=== PATIENT | female | born 1995 | race Caucasian/White ===

== ENCOUNTER 2016-05-11 20:18 | Emergency (ER) | payer MEDICAID ==
[2016-05-11 20:29] VITALS: BP 118/83; BMI 21.5
[2016-05-11 21:14] LABS: BILIRUBIN,URINE NEGATIVE (NEGATIVE); BLOOD/HEMOGLOBIN,URINE NEGATIVE (NEGATIVE); GLUCOSE, URINE NEGATIVE (NEGATIVE); KETONES,URINE 3+ (NEGATIVE); LEUKOCYTE ESTERASE ,URINE 3+ (NEGATIVE); NITRITES,URINE NEGATIVE (NEGATIVE); PH,URINE 6.5 (5.0 - 8.0); PROTEIN,URINE 1+ (NEGATIVE); UROBILINOGEN,URINE NORMAL (NORMAL)
[2016-05-11 21:21] LABS: APPEARANCE,URINE HAZY (CLEAR); COLOR,URINE YELLOW (YELLOW)
[2016-05-11 21:27] LABS: RBC,URINE RARE /HPF (NEGATIVE); SQUAMOUS EPITHELIAL CELL,UR MANY /HPF (NEGATIVE)
[2016-05-11 21:28] LABS: AMORPHOUS SEDIMENT,UR 2+ /HPF (NEGATIVE); BACTERIA,URINE 2+ /HPF (NEGATIVE); MUCUS,URINE MODERATE /HPF (NEGATIVE)
== END 2016-05-11 21:44 | disposition home or self-care (01) ==
LOC: ER 20:18
DX: R11.2 Nausea with vomiting, unspecified (principal); Z3A.38 38 weeks gestation of pregnancy
CPT/HCPCS: 81001; 87086; 99284

== ENCOUNTER 2016-07-31 11:34 | Emergency (ER) | payer OTHER ==
[2016-07-31 11:52] VITALS: BP 99/71; BMI 18.3
[2016-07-31] MEDS ORDERED: NS 1000 ML 1,000 ML IV ONE (12:28)
[2016-07-31] MEDS ORDERED: ZOFRAN INJ 4 MG VIAL IVP ONE (12:29)
--- NOTE | 2016-07-31 12:29 | DR.GENAD ---
HPI - PCP Primary Care Physician: NFD - Complaint/Symptoms Chief Complaint:: PATIENT STATED SHE HAS BEEN VOMITING, HAVING BODY ACHES AND CHILLS FOR 3 DAYS - Nurses notes reviewed Nurses Notes Review: Yes - Source History Provided: Patient - Mode of Arrival Mode of Arrival: Ambulatory - Timing Onset of Chief Complaint: 07/29/16 PMH - PMH Past Medical History: Yes Past Medical History: Anxiety, Depression, Hypertension Past Surgical History: Yes Surgical History: Tonsillectomy - Family History History of Family Medical Conditions: Yes Family Medical History: Hypertension - Social History Does patient currently use any type of tobacco product: Yes Have you used tobacco products in the last 12 months: Yes Type of Tobacco Use: Cigarettes How many years tobacco product used: 4 Does any household member use tobacco: Yes Alcohol Use: None Do you use any recreational Drugs:: No Lives With: Family Lives Where: Home - infectious screening In the last 2 months have you had wt loss of >10#?: NO Have you had fever, night sweats or hemotysis?: No Have you traveled outside the country in the last 6 months?: No Isolation: Standard PE - Vital Signs Vitals: Temperature 98.7 F Pulse Rate 86 Respiratory Rate 18 Blood Pressure [Right Arm] 121/79 Blood Pressure 99/71 O2 Sat by Pulse Oximetry 99 ROR - Labs Reviewed Result Diagrams: 07/31/16 12:40 07/31/16 12:40 Laboratory: WBC 6.8 X10^3/uL (3.6-10.0) 07/31/16 12:40 RBC 4.51 X10^6/uL (3.5-5.4) 07/31/16 12:40 Hgb 13.0 g/dL (12.0-16.0) 07/31/16 12:40 Hct 38.6 % (36.0-47.0) 07/31/16 12:40 MCV 85.7 fL (80.0-100.0) 07/31/16 12:40 MCH 28.9 pg (27.0-34.0) 07/31/16 12:40 MCHC 33.7 g/dL (33.0-35.0) 07/31/16 12:40 RDW 14.3 % (11.6-16.5) 07/31/16 12:40 Plt Count 213 X10^3/uL (150.0-450.0) 07/31/16 12:40 MPV 8.1 fL (7.4-11.0) 07/31/16 12:40 Neut % 76.5 % (42.0-75.0) H 07/31/16 12:40 Lymph % 15.4 % (21.0-51.0) L 07/31/16 12:40 Cross % 6.9 % (0.0-13.0) 07/31/16 12:40 Eos % 0.5 % (0.9-2.9) L 07/31/16 12:40 Baso % 0.7 % (0.2-1.0) 07/31/16 12:40 Neut # 5.2 x10^3/uL (2.2-4.8) H 07/31/16 12:40 Lymph # 1.0 X10^3/uL (1.3-2.9) L 07/31/16 12:40 Cross # 0.5 x10^3/uL (0.3-0.8) 07/31/16 12:40 Eos # 0.0 x10^3/uL (0.0-0.2) 07/31/16 12:40 Baso # 0.0 X10^3/uL (0.0-0.1) 07/31/16 12:40 Absolute Nucleated RBC 0.0 /100WBC 07/31/16 12:40 Sodium 140 mmol/L (136-145) 07/31/16 12:40 Corrected Sodium TNP 07/31/16 12:40 Potassium 2.8 mmol/L (3.5-5.1) L* 07/31/16 12:40 Chloride 102 mmol/L (98-107) 07/31/16 12:40 Carbon Dioxide 28.2 mmol/L (21-32) 07/31/16 12:40 BUN 12 mg/dL (7-18) 07/31/16 12:40 Creatinine 1.03 mg/dL (0.55-1.02) H 07/31/16 12:40 Est GFR (MDRD) Af Amer > 60 (>60) 07/31/16 12:40 Est GFR (MDRD) Non-Af > 60 (>60) 07/31/16 12:40 Glucose 82 mg/dL (65-99) 07/31/16 12:40 Calcium 8.6 mg/dL (8.5-10.1) 07/31/16 12:40 Corrected Calcium TNP 07/31/16 12:40 Total Bilirubin 0.30 mg/dL (0.2-1.0) 07/31/16 12:40 AST 15 Units/L (15-37) 07/31/16 12:40 ALT 18 Units/L (12-78) 07/31/16 12:40 Alkaline Phosphatase 54 Units/L (46-116) 07/31/16 12:40 Total Protein 7.0 g/dL (6.4-8.2) 07/31/16 12:40 Albumin 3.6 g/dL (3.4-5.0) 07/31/16 12:40 Globulin 3.4 g/dL (2.5-4.5) 07/31/16 12:40 Albumin/Globulin Ratio 1.1 Ratio (1.1-2.1) 07/31/16 12:40 Amylase 27 Units/L (25-115) 07/31/16 12:40 Lipase 57 Units/L (73-393) L 07/31/16 12:40 HCG, Qual Negative <10 mIU/mL 07/31/16 12:35 Specimen Type Clean catch urine 07/31/16 14:51 Urine Color Bloody (YELLOW) 07/31/16 14:51 Urine Appearance Hazy (CLEAR) 07/31/16 14:51 Urine pH 6.5 (5.0 - 8.0) 07/31/16 14:51 Ur Specific [place] 1.020 (1.000-1.030) 07/31/16 14:51 Urine Protein 3+ (NEGATIVE) 07/31/16 14:51 Urine Glucose (UA) Negative (NEGATIVE) 07/31/16 14:51 Urine Ketones Negative (NEGATIVE) 07/31/16 14:51 Urine Occult Blood 5+ (NEGATIVE) 07/31/16 14:51 Urine Nitrite Negative (NEGATIVE) 07/31/16 14:51 Urine Bilirubin Negative (NEGATIVE) 07/31/16 14:51 Urine Urobilinogen Normal (NORMAL) 07/31/16 14:51 Ur Leukocyte Esterase 1+ (NEGATIVE) 07/31/16 14:51 Urine RBC Tntc /HPF (NEGATIVE) 07/31/16 14:51 Urine WBC 3-5 /HPF (NEGATIVE) 07/31/16 14:51 Ur Squamous Epith Cells Moderate /HPF (NEGATIVE) 07/31/16 14:51 Amorphous Sediment 2+ /HPF (NEGATIVE) 07/31/16 14:51 Urine Bacteria Trace /HPF (NEGATIVE) 07/31/16 14:51 Ur Culture Indicated? No/not indicated 07/31/16 14:51 - Discharge Plan Condition: Stable Prescriptions: Dicyclomine HCl [Bentyl tab 20 mg] 20 mg PO TID PRN #15 tab PRN Reason: Ondansetron HCl [ZOFRAN TAB 4 MG *] 4 mg PO Q8H PRN #15 tab PRN Reason: Nausea/Vomiting - Follow ups/Referrals Follow ups/Referrals: JOLIE LUNSFORD [STAFF PHYSICIAN] - 2 days NFD,None [Primary Care Provider] - 2 days - Instructions Instructions: Viral Gastroenteritis, Adult, [id number], Abdominal Pain, Adult , [id number] Additional Instructions: RETURN TO ED IF WORSE.
[2016-07-31 12:45] LABS: BASOPHILS % (AUTO) 0.7 % (0.2-1.0); EOSINOPHILS % (AUTO) 0.5 % (0.9-2.9); HEMATOCRIT 38.6 % (36.0-47.0); LYMPHOCYTES % (AUTO) 15.4 % (21.0-51.0); MEAN CORPUSCULAR HEMOGLOBIN 28.9 pg (27.0-34.0); MEAN CORPUSCULAR HGB CONC 33.7 g/dL (33.0-35.0); MEAN CORPUSCULAR VOLUME 85.7 fL (80.0-100.0); MEAN PLATELET VOLUME 8.1 fL (7.4-11.0); MONOCYTES # (AUTO) 0.5 x10^3/uL (0.3-0.8); MONOCYTES % (AUTO) 6.9 % (0.0-13.0); NEUTROPHILS # (AUTO) 5.2 x10^3/uL (2.2-4.8); NEUTROPHILS % (AUTO) 76.5 % (42.0-75.0); PLATELET COUNT 213 X10^3/uL (150.0-450.0); RED BLOOD COUNT 4.51 X10^6/uL (3.5-5.4); RED CELL DISTRIBUTION WIDTH 14.3 % (11.6-16.5); WHITE BLOOD COUNT 6.8 X10^3/uL (3.6-10.0)
[2016-07-31] MEDS ORDERED: NS 1000 ML 1,000 ML ONE (12:52)
[2016-07-31] MEDS ORDERED: ZOFRAN INJ 4 MG VIAL ONE (12:52)
[2016-07-31 12:53] LABS: BLOOD UREA NITROGEN 12 mg/dL (7-18); CALCIUM 8.6 mg/dL (8.5-10.1); CARBON DIOXIDE 28.2 mmol/L (21-32); CHLORIDE 102 mmol/L (98-107); CREATININE 1.03 mg/dL (0.55-1.02); GLUCOSE 82 mg/dL (65-99); SODIUM 140 mmol/L (136-145); eGFR BLACK RACES > 60 (>60); eGFR NON BLACK RACES > 60 (>60)
[2016-07-31 12:58] LABS: ALANINE AMINOTRANSFERASE 18 Units/L (12-78); ALBUMIN 3.6 g/dL (3.4-5.0); ALKALINE PHOSPHATASE 54 Units/L (46-116); AMYLASE 27 Units/L (25-115); ASPARTATE AMINO TRANSFERASE 15 Units/L (15-37); LIPASE 57 Units/L (73-393)
[2016-07-31] MEDS ORDERED: POTASSIUM CHLORIDE LIQ 20 MEQ UDC PO ONE (13:31)
[2016-07-31] MEDS ORDERED: POTASSIUM CHLORIDE LIQ 20 MEQ UDC ONE (13:40)
[2016-07-31 14:30] LABS: SERUM PREGNANCY TEST, QUAL NEGATIVE <10 mIU/mL
--- NOTE | 2016-07-31 14:48 | RAD ---
HISTORY: Abdominal pain Study: Acute abdominal series Comparison: None Findings: The trachea is midline. The cardiac silhouette is unremarkable. The lungs are clear without focal infiltrate or effusion. The bony thorax is unremarkable. Flat plate and upright evaluation of the abdomen demonstrates a normal bowel gas pattern. No pneumop eritoneum is identified.. No pathological soft tissue mass or calcification can be observed. The b xenia structures are grossly intact. IMPRESSION: 1. No acute cardiopulmonary disease. 2. No evidence for acute abdominal pathology identified. Reported By:
[2016-07-31 14:59] LABS: BILIRUBIN,URINE NEGATIVE (NEGATIVE); BLOOD/HEMOGLOBIN,URINE 5+ (NEGATIVE); GLUCOSE, URINE NEGATIVE (NEGATIVE); KETONES,URINE NEGATIVE (NEGATIVE); LEUKOCYTE ESTERASE ,URINE 1+ (NEGATIVE); NITRITES,URINE NEGATIVE (NEGATIVE); PH,URINE 6.5 (5.0 - 8.0); PROTEIN,URINE 3+ (NEGATIVE); UROBILINOGEN,URINE NORMAL (NORMAL)
[2016-07-31 15:08] LABS: AMORPHOUS SEDIMENT,UR 2+ /HPF (NEGATIVE); APPEARANCE,URINE HAZY (CLEAR); BACTERIA,URINE TRACE /HPF (NEGATIVE); COLOR,URINE BLOODY (YELLOW); RBC,URINE TNTC /HPF (NEGATIVE); SQUAMOUS EPITHELIAL CELL,UR MODERATE /HPF (NEGATIVE)
== END 2016-07-31 16:13 | disposition home or self-care (01) ==
LOC: ER 11:55
DX: R11.10 Vomiting, unspecified (principal); A08.4 Viral intestinal infection, unspecified; R10.84 Generalized abdominal pain; R68.83 Chills (without fever); R52 Pain, unspecified
CPT/HCPCS: 36415; 74022; 80053; 81001; 82150; 83690; 84703; 85025; 96365; 96374; 99282; 99283; A4222; J2405

== ENCOUNTER 2016-11-07 13:18 | Emergency (ER) | payer OTHER ==
[2016-11-07 13:23] VITALS: BP 103/74; BMI 18.8
[2016-11-07 13:55] LABS: BILIRUBIN,URINE NEGATIVE (NEGATIVE); BLOOD/HEMOGLOBIN,URINE 4+ (NEGATIVE); GLUCOSE, URINE NEGATIVE (NEGATIVE); KETONES,URINE NEGATIVE (NEGATIVE); LEUKOCYTE ESTERASE ,URINE 3+ (NEGATIVE); NITRITES,URINE POSITIVE (NEGATIVE); PROTEIN,URINE 4+ (NEGATIVE); UROBILINOGEN,URINE NORMAL (NORMAL)
--- NOTE | 2016-11-07 13:57 | DR.GENAD ---
HPI - PCP Primary Care Physician: nfd - Complaint/Symptoms Chief Complaint Doctors Comments: Patient admits to dysuria and flank pain for three days. Denies fever, vomiting or diarrhea. Chief Complaint:: patient stated she has had pain in her kidneys and painful urination foe 3 days. - Source History Provided: Patient - Mode of Arrival Mode of Arrival: Ambulatory - Timing Onset of Chief Complaint: 11/04/16 PMH - PMH Past Medical History: Yes Past Medical History: Hypertension Past Surgical History: Yes Surgical History: Tonsillectomy - Family History History of Family Medical Conditions: Yes Family Medical History: Hypertension - Social History Does patient currently use any type of tobacco product: Yes Have you used tobacco products in the last 12 months: Yes Type of Tobacco Use: Cigarettes How many years tobacco product used: 10 Does any household member use tobacco: Yes Alcohol Use: None Do you use any recreational Drugs:: No Lives With: Family Lives Where: Home - infectious screening In the last 2 months have you had wt loss of >10#?: NO Have you had fever, night sweats or hemotysis?: No Have you traveled outside the country in the last 6 months?: No Isolation: Standard ROS - Review of Systems Eyes: No Symptoms Reported ENTM: No Symptoms Reported Respiratoy: No Symptoms Reported Cardiovascular: No Symptoms Reported Gastrointestinal/Abdominal: No Symptoms Reported Genitourinary: Dysuria Neurological: No Symptoms Reported Musculoskeletal: No Symptoms Reported Integumentary: No Symptoms Reported Hematologic/Lymphatic: No Symptoms Reported Endocrine: No Symptoms Reported Psychiatric: No Symptoms Reported All Other Systems: Reviewed and Negative PE - Vital Signs Vitals: Temperature 98.9 F Pulse Rate 80 Respiratory Rate 16 Blood Pressure [Right Arm] 121/79 Blood Pressure 103/74 O2 Sat by Pulse Oximetry 100 - General Limitations: No Limitations General Appearance: Alert, In No Apparent Distress - Head Head Exam: Normal Inspection, Atraumatic - Eyes Eye exam: Normal Appearance, PERRL, EOMI - ENT ENT Exam: Normal Exam External Ear Exam: Normal External Inspection TM/Canal Exam: Bilateral Normal Nose Exam: Normal Nose Exam Mouth Exam: Normal Inspection Throat Exam: Normal Inspection - Neck Neck Exam: Normal Inspection - Chest Chest Inspection: Normal Inspection - Respiratory Respiratory Exam: Normal Lung Sounds Bilat Respiratory Exam: Bilateral Clear to Auscultation - Cardiovascular Cardiovascular Exam: Regular Rate, Normal Rhythm - Abdominal Exam Abdominal Exam: Normal Inspection, Normal Bowel Sounds Abdominal Tenderness: negative: RUQ, RLQ, LUQ, LLQ, Epigastrium, Suprapubic, Diffuse, Mild, Moderate, Severe, Other - Extremities Extremities Exam: Normal Inspection, Full ROM - Back Back Exam: Normal Inspection, Full ROM - Neurologic Neurological Exam: Alert, Oriented X3, CN II-XII Intact - Psychiatric Psychiatric Exam: Normal Affect - Skin Skin Exam: Warm, Dry, Intact ROR - Labs Reviewed Laboratory Results Reviewed?: Yes Laboratory: Specimen Type Clean catch urine 11/07/16 13:43 Urine Color Yellow (YELLOW) 11/07/16 13:43 Urine Appearance Cloudy (CLEAR) 11/07/16 13:43 Urine pH 6.0 (5.0 - 8.0) 11/07/16 13:43 Ur Specific [place] 1.015 (1.000-1.030) 11/07/16 13:43 Urine Protein 4+ (NEGATIVE) 11/07/16 13:43 Urine Glucose (UA) Negative (NEGATIVE) 11/07/16 13:43 Urine Ketones Negative (NEGATIVE) 11/07/16 13:43 Urine Occult Blood 4+ (NEGATIVE) 11/07/16 13:43 Urine Nitrite Positive (NEGATIVE) 11/07/16 13:43 Urine Bilirubin Negative (NEGATIVE) 11/07/16 13:43 Urine Urobilinogen Normal (NORMAL) 11/07/16 13:43 Ur Leukocyte Esterase 3+ (NEGATIVE) 11/07/16 13:43 Urine RBC 15-20 /HPF (NEGATIVE) 11/07/16 13:43 Urine WBC Tntc /HPF (NEGATIVE) 11/07/16 13:43 Ur Squamous Epith Cells Rare /HPF (NEGATIVE) 11/07/16 13:43 Amorphous Sediment 2+ /HPF (NEGATIVE) 11/07/16 13:43 Urine Bacteria 3+ /HPF (NEGATIVE) 11/07/16 13:43 Ur Culture Indicated? Yes/culture set up 11/07/16 13:43 - Diagnosis Discharge Problem: UTI (urinary tract infection) Qualifiers: Urinary tract infection type: acute cystitis Hematuria presence: with hematuria Qualified Code(s): N30.01 - Acute cystitis with hematuria - Discharge Plan Condition: Stable - Follow ups/Referrals Follow ups/Referrals: NFD,None [Primary Care Provider] - 3 days - Instructions
[2016-11-07 14:04] LABS: APPEARANCE,URINE CLOUDY (CLEAR); BACTERIA,URINE 3+ /HPF (NEGATIVE); COLOR,URINE YELLOW (YELLOW); RBC,URINE 15-20 /HPF (NEGATIVE); SQUAMOUS EPITHELIAL CELL,UR RARE /HPF (NEGATIVE)
[2016-11-07 14:05] LABS: AMORPHOUS SEDIMENT,UR 2+ /HPF (NEGATIVE)
[2016-11-07] MEDS ORDERED: ROCEPHIN VIAL 1 GM IM ONE (14:15)
[2016-11-07] MEDS ORDERED: NS 1000 ML 1,000 ML ONE (14:30)
[2016-11-07] MEDS ORDERED: ROCEPHIN VIAL 1 GM ONE (14:35)
[2016-11-07] MEDS ORDERED: NS 1000 ML 1,000 ML IV ONE (14:36)
[2016-11-08] MEDS ORDERED: ROCEPHIN VIAL 1 GM 1 GM in NS 50 ML IV + SPIKE MINIBAG* 50 ML IV SCH (09:00)
== END 2016-11-07 15:33 | disposition home or self-care (01) ==
LOC: ER 13:29
DX: N30.01 Acute cystitis with hematuria (principal); B96.29 Other Escherichia coli [E. coli] as the cause of diseases classified elsewhere
CPT/HCPCS: 81001; 87086; 87088; 87186; 96365; 96374; 99282; 99283; A4222; J0696

== ENCOUNTER 2017-01-22 11:15 | Emergency (ER) | payer OTHER ==
[2017-01-22 11:23] VITALS: BP 118/92; BMI 17.9
--- NOTE | 2017-01-22 12:44 | DR.GENAD ---
HPI - PCP Primary Care Physician: NONE - HPI Comment HPI Comment: PATIENT SAID HER SINUSIS ARE DRAINING AND HAVE HEADACHE. HER CHEST HAVE STARTED HURTING ALSO. SHE COUGHING, PRODUCTIVE, YELLOW SPUTUM. NO FEVER. - Complaint/Symptoms Chief Complaint Doctors Comments: COUGH, COLD CONGESTION FOR 3 DAYS. CHEST CONGESTION TODAY ALSO WITH FEVER. Chief Complaint:: "C/C/C FOR THREE DAYS NOW" - Nurses notes reviewed Nurses Notes Review: Yes - Source History Provided: Patient - Mode of Arrival Mode of Arrival: Ambulatory - Timing Onset of Chief Complaint: 01/20/17 Came on: Suddenly - Duration Duration: Constant Duration: Days - Severity Severity: Moderate PMH - PMH Past Medical History: Yes Past Medical History: Arthritis, Hypertension Past Surgical History: Yes Surgical History: Tonsillectomy - Family History History of Family Medical Conditions: Yes Family Medical History: Cancer - Social History Does patient currently use any type of tobacco product: Yes Have you used tobacco products in the last 12 months: Yes Type of Tobacco Use: Cigarettes How many years tobacco product used: 15 Does any household member use tobacco: No Alcohol Use: None Do you use any recreational Drugs:: No Lives With: Family Lives Where: Home - infectious screening In the last 2 months have you had wt loss of >10#?: NO Have you had fever, night sweats or hemotysis?: No Have you traveled outside the country in the last 6 months?: No Isolation: Standard ROS - Review of Systems Constitutional: Fever, Weakness, Fatigue. negative: Chills Eyes: No Symptoms Reported. negative: Eye Pain, Discharge ENTM: Ear Pain, Nose Discharge, Nose Congestion, Throat Pain Respiratoy: Productive Cough. negative: Short of Breath, Wheezing, Hemoptysis Cardiovascular: No Symptoms Reported Gastrointestinal/Abdominal: No Symptoms Reported Genitourinary: No Symptoms Reported Neurological: Headache Musculoskeletal: Muscle Pain Integumentary: No Symptoms Reported Hematologic/Lymphatic: No Symptoms Reported Endocrine: No Symptoms Reported All Other Systems: Reviewed and Negative PE - Vital Signs Vitals: Temperature 100 F Pulse Rate 112 Respiratory Rate 18 Blood Pressure [Right Arm] 121/79 Blood Pressure 118/92 O2 Sat by Pulse Oximetry 99 - General Limitations: No Limitations General Appearance: Alert - Head Head Exam: Normal Inspection - Eyes Eye exam: Normal Appearance - ENT ENT Exam: Normal External Ear Exam External Ear Exam: Normal External Inspection TM/Canal Exam: Bilateral Bulging Mouth Exam: Normal Inspection Throat Exam: Tonsillar Erythema. negative: Tonsillomegaly, Tonsillar Exudate - Neck Neck Exam: Trachea Midline. negative: Tenderness, Meningismus, Lymphadenopathy - Chest Chest Inspection: Symmetric Chest Wall Rise - Respiratory Respiratory Exam: Normal Lung Sounds Bilat Respiratory Exam: Bilateral Clear to Auscultation - Cardiovascular Cardiovascular Exam: Regular Rate, Normal Rhythm, Normal Heart Sounds - Abdominal Exam Abdominal Exam: Normal Bowel Sounds, Soft. negative: Tenderness - Extremities Extremities Exam: Normal Inspection - Back Back Exam: Normal Inspection - Skin Skin Exam: Normal Color MDM - Additional Information Additional Information Obtained From: Family - Differential Diagnosis Differential Diagnosis: SINUSITIS, BRONCHITIS, PNEUMONIA, STREP THROAT, INFLUENZA Course - Treatment Treatment: SEE ORDERS. - Education/Counseling Education/Counseling: Patient, Education Educated On: Diagnosis, Needs for Follow Up - Diagnosis Discharge Problem: Bronchitis Sinusitis Qualifiers: Sinusitis location: unspecified location Chronicity: acute Recurrence: not specified as recurrent Qualified Code(s): J01.90 - Acute sinusitis, unspecified - Discharge Plan Disposition: HOME, SELF-CARE Condition: Stable Prescriptions: Amoxicillin/Potassium Clav [Amoxicillin/Clavulanate P 875-125 mg] 1 tab PO Q12H #20 tab Benzonatate [TESSALON PERLES *] 100 mg PO TID PRN #21 cap PRN Reason: Cough Cetirizine HCl [Zyrtec Tab 10 mg] 10 mg PO DAILY PRN #30 tab PRN Reason: - Follow ups/Referrals Follow ups/Referrals: NFD,None [Primary Care Provider] - 3 days - Instructions Instructions: Sinusitis, Adult, [id number], Acute Bronchitis, [id number] Additional Instructions: RETURN TO ED IF WORSE.
== END 2017-01-22 13:05 | disposition home or self-care (01) ==
LOC: ER 11:58
DX: J40 Bronchitis, not specified as acute or chronic (principal); J01.80 Other acute sinusitis
CPT/HCPCS: 99281; 99282

== ENCOUNTER 2017-03-22 22:06 | Emergency (ER) | payer OTHER ==
[2017-03-22 22:18] VITALS: BP 124/75; BMI 18.8
--- NOTE | 2017-03-22 23:12 | DR.GENAD ---
HPI - PCP Primary Care Physician: robin - Complaint/Symptoms Chief Complaint Doctors Comments: Patient is complaining of upper and lower back pain and abdominal pain intermittently for the past 2-3 months. States the pain comes and goes. She denies any recent trauma. States she is eight weeks with twins and she is a patient of Dr. New and she said the twins was doing fine on recent visit. States she smokes but is trying to stop smoking. She denies hematuria, vaginal discharge, bleeding, fever, chills , cold or cough. States she has been taking tylenol for the pain. States she has one child at home already. Patient states her doctor took a urine and sent it to the labs but did not give her any antibiotics and she does not know the results of the test. Chief Complaint:: abdomen and back Self Treatment fo Chief Complaint: none - Nurses notes reviewed Nurses Notes Review: Yes - Source History Provided: Patient - Mode of Arrival Mode of Arrival: Ambulatory - Timing Onset of Chief Complaint: 01/25/17 Came on: Gradually - Duration Duration: Intermittent How lon Duration: Weeks - Location Location: back and abdominal pain - Severity Severity: Mild - Modifying Factors Worsens:: nothing Improves:: nothing PMH - PMH Past Medical History: No Past Medical History: Arthritis, Hypertension Past Surgical History: Yes Surgical History: Tonsillectomy - Family History History of Family Medical Conditions: No Family Medical History: Cancer - Social History Does patient currently use any type of tobacco product: Yes Have you used tobacco products in the last 12 months: Yes Type of Tobacco Use: Cigarettes Does any household member use tobacco: No Alcohol Use: None Do you use any recreational Drugs:: No Lives With: Family Lives Where: Home - infectious screening In the last 2 months have you had wt loss of >10#?: NO Have you had fever, night sweats or hemotysis?: No Have you traveled outside the country in the last 6 months?: No Isolation: Standard ROS - Review of Systems Constitutional: No Symptoms Reported. negative: See HPI, Chills, Diaphoresis, Fever, Malaise, Weakness, Irritable, Fatigue, Loss of Appetite, Other Eyes: No Symptoms Reported ENTM: No Symptoms Reported. negative: See HPI, Ear Pain, Ear Discharge, Pulling on Ears, Hearing Loss, Nose Pain, Nose Discharge, Epistaxis, Nose Congestion, Mouth Pain, Mouth Swelling, Loose Teeth, Drooling, Throat Pain, Throat Swelling, Ear Foreign Body Respiratoy: No Symptoms Reported Cardiovascular: No Symptoms Reported Gastrointestinal/Abdominal: No Symptoms Reported, Abdominal Pain. negative: See HPI, Constipation, Diarrhea, Nausea, Vomiting, Food Intolerance, Other Genitourinary: No Symptoms Reported. negative: See HPI, Discharge, Dysuria, Frequency, Hematuria, Pain, Bleeding, Other Neurological: No Symptoms Reported Musculoskeletal: No Symptoms Reported, Back Pain Integumentary: No Symptoms Reported Hematologic/Lymphatic: No Symptoms Reported. negative: See HPI, Anemia, Blood Clots, Easy Bleeding, Easy Bruising, Swollen Glands, Lymphadenopathy, Other Endocrine: No Symptoms Reported Psychiatric: No Symptoms Reported. negative: See HPI, Anxiety, Depression, Hallucinations, Excessive crying, Suicidal, Other PE - Vital Signs Vitals: Temperature 99.2 F Pulse Rate 101 Respiratory Rate 15 Blood Pressure [Right Arm] 121/79 Blood Pressure 124/75 O2 Sat by Pulse Oximetry 100 - General Limitations: No Limitations General Appearance: Alert, In No Apparent Distress - Head Head Exam: Normal Inspection, Atraumatic, Normocephalic - Eyes Eye exam: Normal Appearance, PERRL, EOMI. negative: Scleral Icterus, Conjunctival Injection, Nystagmus, Miosis, Mydrasis, Periorbital Swelling, Periorbital Tenderness, Other - ENT ENT Exam: Normal Exam, Normal Oropharynx, Normal External Ear Exam, Mucous Membranes Moist, TM's Normal Bilaterally External Ear Exam: Normal External Inspection TM/Canal Exam: Bilateral Normal Nose Exam: Normal Nose Exam Mouth Exam: Normal Inspection Throat Exam: Normal Inspection - Neck Neck Exam: Normal Inspection, Full ROM, Trachea Midline - Chest Chest Inspection: Normal Inspection, Symmetric Chest Wall Rise - Respiratory Respiratory Exam: Normal Lung Sounds Bilat Respiratory Exam: Bilateral Clear to Auscultation - Cardiovascular Cardiovascular Exam: Regular Rate, Normal Rhythm, Normal Heart Sounds. negative : Bradycardia, Tachycardia, Irregular Rhythm, Systolic Murmur, Diastolic Murmur , Rubs, Gallop, Clicks, JVD, +S1, +S2, +S3, +S4, Other - Abdominal Exam Abdominal Exam: Normal Inspection, Normal Bowel Sounds, Soft. negative: Distention, Tenderness, Guarding, Rebound, Rigidity, Dimnished Bowel Sounds, Hyperactive Bowel Sounds, Hypoactive Bowel Sounds, Organomegaly, Trauma, Incision, Ascites, Mass, Bruit, Pulsatile Mass, Hernia, Other Abdominal Tenderness: negative: RUQ, RLQ, LUQ, LLQ, Epigastrium, Suprapubic, Diffuse, Mild, Moderate, Severe, Other - Extremities Extremities Exam: Normal Inspection, Full ROM, Normal Capillary Refill. negative: Tenderness, Edema, Joint Swelling, Calf Tenderness, Other - Back Back Exam: Normal Inspection, Full ROM. negative: Tenderness, (R) CVA Tenderness, (L) CVA Tenderness, Muscle Spasm, Paraspinal Tenderness, Vertebral Tenderness, Rashes, (R) Sciatic Notch Tenderness, (L) Sciatic Notch Tendern, (R ) Straight Leg Raise, (L) Straight Leg Raise, Other - Neurologic Neurological Exam: Alert, Oriented X3, CN II-XII Intact, Normal Gait, Reflexes Normal - Psychiatric Psychiatric Exam: Normal Affect, Normal Mood - Skin Skin Exam: Warm, Dry, Intact, Normal Color ROR - Labs Reviewed Laboratory Results Reviewed?: Yes (all labs results reviewed and discussed with patient.) Laboratory: Specimen Type Clean catch urine 03/22/17 22: Urine Color Yellow (YELLOW) 03/22/17 22: Urine Appearance Hazy (CLEAR) 03/22/17 22: Urine pH 7.0 (5.0 - 8.0) 03/22/17 22: Ur Specific [place] 1.010 (1.000-1.030) 03/22/17 22: Urine Protein Negative (NEGATIVE) 03/22/17 22: Urine Glucose (UA) Negative (NEGATIVE) 03/22/17 22: Urine Ketones Negative (NEGATIVE) 03/22/17 22: Urine Occult Blood Negative (NEGATIVE) 03/22/17 22: Urine Nitrite Negative (NEGATIVE) 03/22/17 22: Urine Bilirubin Negative (NEGATIVE) 03/22/17 22: Urine Urobilinogen Normal (NORMAL) 03/22/17 22: Ur Leukocyte Esterase 3+ (NEGATIVE) 03/22/17 22: Urine RBC 0-3 /HPF (NEGATIVE) 03/22/17 22: Urine WBC 0-3 /HPF (NEGATIVE) 03/22/17 22: Ur Squamous Epith Cells Numerous /HPF (NEGATIVE) 03/22/17 22: Urine Bacteria 1+ /HPF (NEGATIVE) 03/22/17 22: Ur Culture Indicated? No/not indicated 03/22/17 22:31 - Diagnosis Discharge Problem: at early stage, Abdominal pain, Bacteria in urine - Discharge Plan Disposition: HOME, SELF-CARE Condition: Stable Prescriptions: Amoxicillin 500 mg PO TID #30 cap - Follow ups/Referrals Follow ups/Referrals: NFD,None [Primary Care Provider] - 3 days HARINDER WEI [STAFF PHYSICIAN] - 3 days - Instructions Instructions: First Trimester of , and Urinary Tract Infection, Abdominal Pain During , [id number]
[2017-03-22 23:49] LABS: BILIRUBIN,URINE NEGATIVE (NEGATIVE); BLOOD/HEMOGLOBIN,URINE NEGATIVE (NEGATIVE); GLUCOSE, URINE NEGATIVE (NEGATIVE); KETONES,URINE NEGATIVE (NEGATIVE); LEUKOCYTE ESTERASE ,URINE 3+ (NEGATIVE); NITRITES,URINE NEGATIVE (NEGATIVE); PROTEIN,URINE NEGATIVE (NEGATIVE); UROBILINOGEN,URINE NORMAL (NORMAL)
[2017-03-23 00:02] LABS: APPEARANCE,URINE HAZY (CLEAR); BACTERIA,URINE 1+ /HPF (NEGATIVE); COLOR,URINE YELLOW (YELLOW); RBC,URINE 0-3 /HPF (NEGATIVE); SQUAMOUS EPITHELIAL CELL,UR NUMEROUS /HPF (NEGATIVE)
[2017-03-23] MEDS ORDERED: TYLENOL 500 MG TAB EXTRA STRENGTH PO STA (00:27)
[2017-03-23] MEDS ORDERED: AMOXIL CAP 500 MG PO ONE ×2 (00:27→00:46)
[2017-03-23] MEDS ORDERED: TYLENOL 500 MG TAB EXTRA STRENGTH PO ONE (00:46)
== END 2017-03-23 00:49 | disposition home or self-care (01) ==
LOC: ER 22:06
DX: R10.84 Generalized abdominal pain (principal); Z3A.08 8 weeks gestation of pregnancy; R82.71 Bacteriuria
CPT/HCPCS: 81001; 99282

== ENCOUNTER → 2017-07-10 | Outpatient (CLI) | payer OTHER ==
[2017-07-10 12:10] LABS: BASOPHILS # (AUTO) 0.1 X10^3/uL (0.0-0.1); BASOPHILS % (AUTO) 0.5 % (0.2-1.0); EOSINOPHILS # (AUTO) 0.1 x10^3/uL (0.0-0.2); EOSINOPHILS % (AUTO) 0.9 % (0.9-2.9); HEMATOCRIT 31.6 % (36.0-47.0); HEMOGLOBIN 11.3 g/dL (12.0-16.0); LYMPHOCYTES # (AUTO) 1.7 X10^3/uL (1.3-2.9); MEAN CORPUSCULAR HEMOGLOBIN 31.5 pg (27.0-34.0); MEAN CORPUSCULAR HGB CONC 35.7 g/dL (33.0-35.0); MEAN CORPUSCULAR VOLUME 88.4 fL (80.0-100.0); MEAN PLATELET VOLUME 7.6 fL (7.4-11.0); MONOCYTES # (AUTO) 0.4 x10^3/uL (0.3-0.8); MONOCYTES % (AUTO) 3.9 % (0.0-13.0); NEUTROPHILS # (AUTO) 8.6 x10^3/uL (2.2-4.8); NEUTROPHILS % (AUTO) 78.7 % (42.0-75.0); PLATELET COUNT 257 X10^3/uL (150.0-450.0); RED BLOOD COUNT 3.58 X10^6/uL (3.5-5.4); RED CELL DISTRIBUTION WIDTH 13.6 % (11.6-16.5); WHITE BLOOD COUNT 10.9 X10^3/uL (3.6-10.0)
[2017-07-10 12:24] LABS: BLOOD UREA NITROGEN 8 mg/dL (7-18); CALCIUM 8.3 mg/dL (8.5-10.1); CHLORIDE 104 mmol/L (98-107); CREATININE 0.65 mg/dL (0.55-1.02); SODIUM 138 mmol/L (136-145); eGFR BLACK RACES > 60 (>60); eGFR NON BLACK RACES > 60 (>60)
== END ==
LOC: LAB 11:28
PROVIDERS: ATTEND Obstetrics & Gynecology
DX: R42 Dizziness and giddiness (principal)
CPT/HCPCS: 36415; 80048; 84443; 85025